=== PATIENT | male | born 1995 | race African-American/Black ===

== ENCOUNTER 2017-04-16 09:55 | Emergency (ER) | payer SELFPAY ==
--- NOTE | 2017-04-16 10:24 | ED.ADGEN ---
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 Denies history of prior abscesses or hemorrhoids. Does complain of pain it's worse with sitting. Review of Systems Review of Systems Constitutional: Denies fever or chills [] Eyes: Denies change in visual acuity, redness, or eye pain [] HENT: Denies nasal congestion or sore throat [] Respiratory: Denies cough or shortness of breath [] Cardiovascular: No additional information not addressed in HPI [] GI: Denies abdominal pain, nausea, vomiting, bloody stools or diarrhea [] : Denies dysuria or hematuria [] Musculoskeletal: Denies back pain or joint pain [] Integument: Denies rash or skin lesions [] Neurologic: Denies headache, focal weakness or sensory changes [] Endocrine: Denies polyuria or polydipsia [] Physical Exam Physical Exam Constitutional: Well developed, well nourished, no acute distress, non-toxic appearance. [] HENT: Normocephalic, atraumatic, bilateral external ears normal, oropharynx moist, no oral exudates, nose normal. [] Eyes: PERRLA, EOMI, conjunctiva normal, no discharge. [] Neck: Normal range of motion, no tenderness, supple, no stridor. [] Cardiovascular:Heart rate regular rhythm, no murmur [] Lungs & Thorax: Bilateral breath sounds clear to auscultation [] Abdomen: Bowel sounds normal, soft, no tenderness, no masses, no pulsatile masses. [] Skin: Warm, dry, no erythema, no rash. Examination of the left buttocks mild tenderness questionable area of induration but steepened maybe 1-2 cm but not anything near the surface of the skin; perirectal exam no hemorrhoids no fissures nontender around the anus. [] Back: No tenderness, no CVA tenderness. [] Extremities: No tenderness, no cyanosis, no clubbing, ROM intact, no edema. [] Neurologic: Alert and oriented X 3, normal motor function, normal sensory function, no focal deficits noted. [] Psychologic: Affect normal, judgement normal, mood normal. [] Current Patient Data Vital Signs Afebrile not tachycardic EKG EKG [] Radiology/Procedures Radiology/Procedures [] Course & Med Decision Making Course & Med Decision Making Pertinent Labs and Imaging studies reviewed. (See chart for details) Based on physical exam there is nothing to incise and drain at this moment in time this may represent an early perirectal abscess.. Patient is declining CAT scan for further clarification as to size location in exact problem. Recommend pain meds, sits baths, and we will try antibiotics. I've explained to the patient and that this may get worse and faster in which case he would need to return and at that time we can do an incision and drainage but is not ready yet. [] Final Impression Final Impression Left Buttocks pain [] Problems: Dragon Disclaimer Dragon Disclaimer This electronic medical record was generated, in whole or in part, using a voice recognition dictation system. CLARK PALMER MD Apr 16, 2017 10:24
[2017-04-16] MEDS ORDERED: NAPR375T3 PO (10:33)
[2017-04-16] MEDS ORDERED: AMOX1TAB61 PO (10:33)
[2017-04-16 10:50] VITALS: BP 110/64
== END 2017-04-16 10:50 | disposition home or self-care (01) ==
LOC: ER 09:55
DX: M54.5 Low back pain (principal)
CPT/HCPCS: 99283

== ENCOUNTER 2017-04-18 01:22 | Emergency (ER) | payer SELFPAY ==
[2017-04-18 01:22] VITALS: BP 132/67
[~2017-04-18 01:22] MED LIST: AMOX1TAB61 PO; NAPR375T3 PO
--- NOTE | 2017-04-18 01:26 | ED.ADGEN ---
Past History Past Medical History: No Pertinent History Additional Past Medical Histor: denies diabetes Past Surgical History: No Surgical History Smoking: Non-smoker Alcohol Use: None Drug Use: None Adult General Chief Complaint Chief Complaint Abscess HPI HPI Patient is a 22 year old [place] male who presents with of systems left buttocks. According to patient he was seen here approximately week ago for a small area of soreness it was almost but he was given amoxicillin and discharged home. He was instructed that the pain gets worse increasing swelling return back to ER. He states that today he was having increasing pain but denies any pain with bowel movement but it does hurt when he tried to sit because of the abscess. He denies any fevers chills nausea or vomiting. He states he's had one before being never had have a drain. He is unsure when his last tetanus shot was. Review of Systems Review of Systems Constitutional: Denies fever or chills [] Eyes: Denies change in visual acuity, redness, or eye pain [] HENT: Denies nasal congestion or sore throat [] Respiratory: Denies cough or shortness of breath [] Cardiovascular: No additional information not addressed in HPI [] GI: Denies abdominal pain, nausea, vomiting, bloody stools or diarrhea [] : Denies dysuria or hematuria [] Musculoskeletal: Denies back pain or joint pain [] Integument: Denies rash, positive for skin lesion on left buttocks. Neurologic: Denies headache, focal weakness or sensory changes [] Endocrine: Denies polyuria or polydipsia [] Current Medications Current Medications Current Medications Medications (Trade) Dose Ordered Sig/Cherry Start Time Stop Time Status Last Admin Dose Admin Acetaminophen/ Hydrocodone Bitart (Lortab 5/325) 2 tab 1X ONCE 04/18/17 02:30 04/18/17 02:31 UNV 04/18/17 02:26 2 TAB Clindamycin HCl (Cleocin) 300 mg 1X ONCE 04/18/17 02:30 04/18/17 02:31 UNV 04/18/17 02:26 300 MG Diphtheria/ Tetanus/Acell Pertussis (Boostrix) 0.5 ml STK-MED ONCE 04/18/17 01:41 04/18/17 01:42 DC Lidocaine HCl 20 ml STK-MED ONCE 04/18/17 01:41 04/18/17 01:42 DC Lidocaine/Sodium Bicarbonate (Buffered Lidocaine 1%) 3 ml 1X ONCE 04/18/17 01:45 04/18/17 01:46 DC 04/18/17 01:45 3 ML Allergies Allergies Allergies Coded Allergies Type Severity Reaction Last Updated Verified No Known Drug Allergies 04/16/17 No Physical Exam Physical Exam Constitutional: Well developed, well nourished, no acute distress, non-toxic appearance. [] HENT: Normocephalic, atraumatic, bilateral external ears normal, oropharynx moist, no oral exudates, nose normal. [] Eyes: PERRLA, EOMI, conjunctiva normal, no discharge. [] Neck: Normal range of motion, no tenderness, supple, no stridor. [] Cardiovascular:Heart rate regular rhythm, no murmur [] Lungs & Thorax: Bilateral breath sounds clear to auscultation [] Abdomen: Bowel sounds normal, soft, no tenderness, no masses, no pulsatile masses. [] Skin: Warm, dry, no erythema, no rash. 1 x 2 cm fluctuant mass on the left buttocks approximately 2 cm inferior and lateral from the anus Back: No tenderness, no CVA tenderness. [] Extremities: No tenderness, no cyanosis, no clubbing, ROM intact, no edema. [] Neurologic: Alert and oriented X 3, normal motor function, normal sensory function, no focal deficits noted. [] Psychologic: Affect normal, judgement normal, mood normal. [] Current Patient Data Vital Signs Vital Signs Date Time Temp Pulse Resp B/P (MAP) Pulse Ox O2 Delivery O2 Flow Rate FiO2 04/18/17 02:26 20 99 Room Air 04/18/17 01:22 98.7 70 EKG EKG [] Radiology/Procedures Radiology/Procedures [] Course & Med Decision Making Course & Med Decision Making Pertinent Labs and Imaging studies reviewed. (See chart for details) His abscess was opened and packed with iodoform gauze. Refused a rectal exam. Hard to tell how far the abscess goes. I've offered him admission at [place] however he states he rather go home and follow up with surgery as an outpatient. I stressed to him and his that the abscess goes into the sphincter muscle that he'll have incontinence of stool and this is why I wanted him to go to [facility] to be admitted and evaluated by surgery. He states he he will follow-up as an outpatient I stressed again that this is not something to take slightly that he needs to see him tomorrow. I've given him Dr. Mena's information and told him within the next 1-2 days he needs a follow -up with him. Return precautions given for uncontrolled pain, fevers, pain with bowel movements or other concerns to return back to ER. He is agreeable Plan B discharged with 3 mg clindamycin 3 times daily and [place]. His tetanus was updated. Final Impression Final Impression Gluteal abscess Problems: Dragon Disclaimer Dragon Disclaimer This electronic medical record was generated, in whole or in part, using a voice recognition dictation system. Incision and Drainage Indication: Gluteal abscess Procedure: The patient was positioned appropriately and the skin over the incision site was chlorhexidine. Local anesthesia was 5 mL of 1% lidocaine. An incision was then made over the left inferior buttocks and opiates purulent material was expressed. Loculations were broken up. The drainage cavity was then packed with quarter-inch iodoform gauze. The patients tetanus status updated. The patient tolerated the procedure well. Complications: No complications noted NURIA REID MD Apr 18, 2017 01:26
[2017-04-18] MEDS ORDERED: DIPHTH,PERTUSS(ACELL),TET TOX 0.5 ML DISP.SYRIN. VAX IM ONE ×2 (01:41→01:45)
[2017-04-18] MEDS ORDERED: LIDOCAINE 1% Multi-Dose 20 ML VIAL. ONE (01:41)
[2017-04-18] MEDS ORDERED: HYDR-971 PO (01:44)
[2017-04-18] MEDS ORDERED: CLIN300C8 PO (01:44)
[2017-04-18] MEDS ORDERED: LIDOCAINE WITH 8.4% SOD BICARB 3 ML DISP.SYRIN. IJ ONE (01:45)
[2017-04-18] MEDS ORDERED: HYDROcodone/APAP 5/325MG 1 TAB TABLET ONE (02:23)
[2017-04-18] MEDS ORDERED: CLINDAMYCIN HCL 150 MG CAPSULE ONE (02:23)
[2017-04-18] MEDS ORDERED: HYDROcodone/APAP 5/325MG 1 TAB TABLET PO ONE (02:30)
[2017-04-18] MEDS ORDERED: CLINDAMYCIN HCL 150 MG CAPSULE PO ONE (02:30)
== END 2017-04-18 02:35 | disposition home or self-care (01) ==
LOC: ER 01:22
DX: L02.31 Cutaneous abscess of buttock (principal)
CPT/HCPCS: 87070; 90471; 90715; 99284-25; 99285-25

== ENCOUNTER 2017-07-31 08:28 | Emergency (ER) | payer BC ==
[~2017-07-31] VITALS: Ht 182.9 cm; Wt 86.2 kg
[~2017-07-31 08:28] MED LIST changes: +CLIN300C8 PO; +HYDR-971 PO; +NAPR-695 PO; -NAPR375T3 PO
[2017-07-31] MEDS ORDERED: IV NORMAL SALINE 1,000ML 1,000 ML IV ONE (08:45)
[2017-07-31] MEDS ORDERED: ONDANSETRON PF 4 MG/2 ML VIAL. IV ONE (09:00)
[2017-07-31] MEDS ORDERED: DEXAMETHASONE SOD PHOS 10 MG/ML VIAL IV ONE (09:00)
[2017-07-31] MEDS ORDERED: ACETAMINOPHEN 325 MG TABLET PO ONE (09:00)
[2017-07-31] MEDS ORDERED: diphenhydrAMINE 50 MG/ML VIAL IVP ONE (09:00)
--- NOTE | 2017-07-31 09:05 | PHYS DOC ---
Past History Past Medical History: No Pertinent History Additional Past Medical Histor: denies diabetes Past Surgical History: No Surgical History Smoking: Non-smoker Alcohol Use: None Drug Use: None Adult General Chief Complaint Chief Complaint: HEADACHE HPI HPI Patient is a pleasant otherwise healthy 22-year-old male with no major medical problems presents with nausea and vomiting that began yesterday and now a slight frontal headache that began this morning. The headache is not worse of life and sudden onset is described as throbbing and is worse with range of motion and bending forward. Patient denies any specific weakness, numbness or tingling, change in vision, or neck stiffness. He does have a slight low-grade fever reported at home but nothing measured. Patient denies any sick contacts, travel outside the country, he denies any antibiotic use, or rash. Patient has had nonbilious nonbloody vomiting 1 day with no abdominal pain he also complains of slight loose stool. He has taken no medications [id number] or otherwise. Review of Systems Review of Systems Constitutional: Subjective fevers and chills at home Eyes: Denies change in visual acuity, redness, or eye pain [] HENT: Denies nasal congestion or sore throat [] Respiratory: Denies cough or shortness of breath [] Cardiovascular: No additional information not addressed in HPI [] GI: Denies abdominal pain but has nausea with nonbilious nonbloody vomiting loose stool without blood or mucus. : Denies dysuria or hematuria [] Musculoskeletal: Denies back pain or joint pain [] Integument: Denies rash or skin lesions [] Neurologic: He describes a headache that is frontal in nature not worst of life and sudden onset with no neck stiffness without paresthesias, changes in vision , changes in speech, or weakness. Endocrine: Denies polyuria or polydipsia [] Current Medications Current Medications Current Medications Medications (Trade) Dose Ordered Sig/Cherry Start Time Stop Time Status Last Admin Dose Admin Acetaminophen (Tylenol) 650 mg 1X ONCE 07/31/17 09:00 07/31/17 09:01 DC Dexamethasone Sodium Phosphate (Decadron) 10 mg 1X ONCE 07/31/17 09:00 07/31/17 09:01 DC Diphenhydramine HCl (Benadryl) 50 mg 1X ONCE 07/31/17 09:00 07/31/17 09:01 DC Ondansetron HCl (Zofran) 4 mg 1X ONCE 07/31/17 09:00 07/31/17 09:01 DC Sodium Chloride 1,000 ml @ 1,000 mls/hr 1X ONCE 07/31/17 08:45 07/31/17 09:44 07/31/17 08:45 1,000 MLS/HR Allergies Allergies Allergies Coded Allergies Type Severity Reaction Last Updated Verified No Known Drug Allergies 07/31/17 No Physical Exam Physical Exam Vital signs recorded on the chart patient noted to be hypertensive and febrile to 100.7. Constitutional: Well developed, well nourished, no acute distress, non-toxic appearance. [] HENT: Normocephalic, atraumatic, bilateral external ears normal, dry tacky mucous membranes no oral exudates, nose normal. [] Eyes: PERRLA, EOMI, conjunctiva normal, no discharge. [] Neck: Normal range of motion, no tenderness, supple, no stridor. Patient has no specific Brudzinski's or Kernig's sign[] Cardiovascular:Heart rate regular rhythm, no murmur [] Lungs & Thorax: Bilateral breath sounds clear to auscultation [] Abdomen: Bowel sounds noted to be hyperactive, abdomen is otherwise soft no tenderness no masses no pulsatile masses no guarding rebound or organomegaly. Skin: Warm, dry, no erythema, no rash. [] Back: No tenderness, no CVA tenderness. [] Extremities: No tenderness, no cyanosis, no clubbing, ROM intact, no edema. [] Neurologic: Alert and oriented X 3, normal motor function, normal sensory function, no focal deficits noted. [] Current Patient Data Vital Signs Vital Signs Date Time Temp Pulse Resp B/P (MAP) Pulse Ox O2 Delivery O2 Flow Rate FiO2 07/31/17 08:38 100.7 70 17 98 Room Air EKG EKG [] Radiology/Procedures Radiology/Procedures [] Course & Med Decision Making Course & Med Decision Making Pertinent Labs and Imaging studies reviewed. (See chart for details) ration initially presents with nausea vomiting and a low-grade fever. He is feeling dehydrated and looks so on physical exam. He has a low-grade fever to 100.7 with no obvious signs of meningitis, we will provide him analgesics, fever reducers, fluids antiemetics and repeat evaluations. Patient tells me that their symptoms given during CC are improved. Labs are noted at this time patient is felt markedly improved with this headache is also improving and his temples. Fever is coming down. Time is now 9:45 AM[] Time is now 10:35 PM patient feels markedly better his fever is now below 99.7 he has full range of motion. Neck with no evidence of meningitis no rash no petechial findings in the lower legs or his arms Dragon Disclaimer Dragon Disclaimer This chart was dictated in whole or in part using Voice Recognition software in a busy, high-work load, and often noisy Emergency Department environment. It may contain unintended and wholly unrecognized errors or omissions. Departure Departure: Impression: Primary Impression: Viral syndrome Additional Impressions: Fever Headache Disposition: HOME, SELF-CARE Referrals: PCPVANNESA (PCP) Patient Instructions: Fever, Nausea and Vomiting, Tension Headache Additional Instructions: My discharge plan Follow up: In addition patient is asked to followup with their primary doctor, within a week for followup examination and to address patient's ongoing medical conditions. Because patient does not have a regular medical doctor, a local physician Resource Sheet will be provided to establish care primary care. Patient is advised that in the Emergency Department primary complaints are addressed and only in light of known signs and symptoms. Patient should return immediately to the emergency department if new signs and symptoms develop or patient's condition worsens in any way. At time of discharge patient was in stable condition and had verbalized understanding of the discharge instructions. Scripts Ondansetron (ZOFRAN ODT) 8 Mg Tab.rapdis 4 MG PO TID for 5 Days Prov: LIO MUIR MD 07/31/17 Naproxen (NAPROSYN) 500 Mg Tablet 1 TAB PO BID, #20 TAB 1 Refill Prov: LIO MUIR MD 07/31/17 Problem Qualifiers LIO MUIR MD Jul 31, 2017 09:05
[2017-07-31 10:36] VITALS: BP 142/59
[2017-07-31] MEDS ORDERED: NAPR500T PO (10:37)
[2017-07-31] MEDS ORDERED: ONDA8TAB12 PO (10:37)
== END 2017-07-31 10:42 | disposition home or self-care (01) ==
LOC: ER 08:28
DX: B34.9 Viral infection, unspecified (principal); R50.9 Fever, unspecified; R51 Headache
CPT/HCPCS: 96361; 96374; 96375; 99284; J1100; J1200; J2405; J7030

== ENCOUNTER 2018-08-31 08:37 | Emergency (ER) | payer BC ==
[~2018-08-31] VITALS: Ht 182.9 cm; Wt 95.3 kg
[~2018-08-31 08:37] MED LIST changes: +NAPR-683 PO; +ONDA8TAB12 PO
[2018-08-31 08:55] VITALS: BP 129/83
[2018-08-31] MEDS ORDERED: IBUP600T16 PO (08:55)
--- NOTE | 2018-08-31 08:59 | RAD ---
Examination: SHOULDER 2+V RIGHT History: Trauma 08/30/2018, boxing injury to right shoulder, pain Comparison/Correlation: None Findings: Total of 3 images of the right shoulder were obtained. Joint spaces are normal. No acute fracture or bone destruction. Soft tissues are normal. Right upper lung field is unremarkable. Impression: Normal right shoulder x-ray exam. Electronically signed by: Valerio Lane MD (08/31/2018 8:56 AM) [facility]
[2018-08-31] MEDS ORDERED: IBUPROFEN 600 MG TABLET. PO ONE (09:00)
--- NOTE | 2018-08-31 10:34 | PHYS DOC ---
Past History Past Medical History: No Pertinent History Additional Past Medical Histor: denies diabetes Past Surgical History: No Surgical History Smoking: Non-smoker Alcohol Use: None Drug Use: None Adult General Chief Complaint Chief Complaint: SHOULDER INJURY HPI HPI Patient is a 23-year-old male presenting with shoulder pain. He was sparring as a box yesterday and he moved his arm the wrong way he has had sharp anterior right shoulder pain nonradiating worse with movement tried Tylenol with minimal relief symptoms are getting worse with time Current Medications Current Medications Current Medications Medications (Trade) Dose Ordered Sig/Cherry Start Time Stop Time Status Last Admin Dose Admin Ibuprofen (Motrin) 600 mg 1X ONCE 08/31/18 09:00 08/31/18 09:01 DC 08/31/18 08:52 600 MG Allergies Allergies Allergies Coded Allergies Type Severity Reaction Last Updated Verified No Known Drug Allergies 07/31/17 No Physical Exam Physical Exam Constitutional: Well developed, well nourished, no acute distress, non-toxic appearance. [] HENT: Normocephalic, atraumatic, bilateral external ears normal, oropharynx moist, no oral exudates, nose normal. [] Eyes: PERRLA, EOMI, conjunctiva normal, no discharge. [] Pulmonary: Normal respiratory effort no increased work of breathing no obvious chest wall trauma A Extremities: Mild tenderness noted to the anterior right shoulder no swelling no erythema no deformity distal function is intact[] Neurologic: Alert and oriented X 3, normal motor function, normal sensory function, no focal deficits noted. [] Psychologic: Affect normal, judgement normal, mood normal. [] Current Patient Data Vital Signs Vital Signs Date Time Temp Pulse Resp B/P (MAP) Pulse Ox O2 Delivery O2 Flow Rate FiO2 08/31/18 08:55 97.6 89 20 100 Room Air EKG EKG [] Radiology/Procedures Radiology/Procedures [] Impressions: Shoulder x-ray negative Course & Med Decision Making Course & Med Decision Making Pertinent Labs and Imaging studies reviewed. (See chart for details) []Sling applied ice and rest therapy recommended return precautions advised as needed for follow-up Dragon Disclaimer [place] Disclaimer This electronic medical record was generated, in whole or in part, using a voice recognition dictation system. Departure Departure: Impression: Primary Impression: Shoulder sprain Disposition: HOME, SELF-CARE Condition: STABLE Patient Instructions: Shoulder Exercises, Generic, SportsMed Scripts Ibuprofen (IBUPROFEN) 600 Mg Tablet 600 MG PO TID PRN for PAIN, #30 TAB Prov: PK JENKINS MD 08/31/18 PK JENKINS MD Aug 31, 2018 10:34
== END 2018-08-31 09:07 | disposition home or self-care (01) ==
LOC: ER 08:37
DX: S43.491A Other sprain of right shoulder joint, initial encounter (principal); X50.9XXA Other and unspecified overexertion or strenuous movements or postures, initial encounter; Y93.89 Activity, other specified; Y92.89 Other specified places as the place of occurrence of the external cause; Y99.8 Other external cause status
CPT/HCPCS: 73030; 99284

== ENCOUNTER 2018-10-13 08:17 | Emergency (ER) | payer BC ==
[~2018-10-13] VITALS: Ht 180.3 cm; Wt 98.9 kg
[~2018-10-13 08:17] MED LIST changes: +HYDR-3165 PO; -HYDR-971 PO; +IBUP600T16 PO
[2018-10-13 09:13] VITALS: BP 157/99
[2018-10-13] MEDS ORDERED: SULF1TAB24 PO (09:17)
[2018-10-13] MEDS ORDERED: HYDR-3136 PO (09:17)
--- NOTE | 2018-10-13 13:01 | ED.ADGEN ---
Past History Past Medical History: No Pertinent History Additional Past Medical Histor: denies diabetes Past Surgical History: No Surgical History Smoking: Non-smoker Alcohol Use: None Drug Use: None Adult General Chief Complaint Chief Complaint Akosua-rectal abscesss HPI HPI Patient is an 23 YO AA male with history of chronic perirectal abscess with fistula tract presents with increased perirectal, right buttock pain. Patient states symptoms have occurred over the past several days. He reports fluctuance and tenderness to his left lower buttock chin. No fever chills, nausea vomiting or sweats. Denies drainage, diarrhea or mucousy stools. He was seen in the emergency department approximately one year ago for the same was instructed to follow-up with general surgeon. Patient did not see anyone in follow-up. No other acute symptoms or complaints.[] Review of Systems Review of Systems ROS as per HPI All other systems were reviewed and found to be within normal limits, except as documented in this note. Allergies Allergies Allergies Coded Allergies Type Severity Reaction Last Updated Verified No Known Drug Allergies 07/31/17 No Physical Exam Physical Exam Constitutional: Well developed, well nourished, no acute distress, non-toxic appearance. [] HENT: Normocephalic, atraumatic, bilateral external ears normal, oropharynx moist,nose normal. [] Eyes: PERRLA, EOMI, conjunctiva normal. [] Lungs & Thorax: Bilateral breath sounds clear to auscultation [] Abdomen: Bowel sounds normal, soft, no tenderness, no masses, no pulsatile masses. [] Buttocks:Left lower medial buttock/akosua-rectal abscess. He erythema or drainage. Abscess is fluctuant with scar from previous incisions/drainage site. Unable to determine depth on cursory exam. Neurologic: Alert and oriented X 3, normal motor function, normal sensory function, no focal deficits noted. [] Psychologic: Affect normal, judgement normal, mood normal. [] Current Patient Data Vital Signs Vital Signs Date Time Temp Pulse Resp B/P (MAP) Pulse Ox O2 Delivery O2 Flow Rate FiO2 10/13/18 09:13 98.1 94 100 10/13/18 08:29 18 157/99 (118) Room Air EKG EKG [] Radiology/Procedures Radiology/Procedures [Superficial I&D of perirectal abscess Or buttocks prepped with Betadine, 2 mL 1% Xylocaine without epinephrine injected over the area of maximal fluctuance. On which a stab incision was made with a #11 blade. A small amount foul-smelling purulent drainage was evacuated, Abscess was irrigated as well as irrigated after superficially explored for loculations. On deeper abscess was felt to No other pockets were noted. Patient placed on dry bandage. Course & Med Decision Making Course & Med Decision Making Pertinent Labs and Imaging studies reviewed. (See chart for details) [Perirectal abscess. No abdominal pain, systemic symptoms. Patient's reason for presentation to the ED is primarily pain related. Superficial I&D of incision of perirectal abscess was performed primarily for pain relief. I explained to the patient this was not a definitive procedure and that this would require general surgical follow-up with exploration excision of abscess and fistula tract. Give the lack of acute complications ant that this is a chronic process that has recurred or went of for weeks to months, I will referred the patient to general surgeon. Patient verbalizes understanding agreement discharge instructions prior to departure.] Final Impression Final Impression [1. Akosua-rectal abscess] Elenita Disclaimer Draglola Disclaimer This electronic medical record was generated, in whole or in part, using a voice recognition dictation system. CLAYTON MCNEIL DO Oct 13, 2018 13:01
== END 2018-10-13 09:25 | disposition home or self-care (01) ==
LOC: ER 08:17
DX: K61.1 Rectal abscess (principal)
CPT/HCPCS: 46040; 99284

== ENCOUNTER 2018-12-26 04:14 | Emergency (ER) | payer OTHER ==
[~2018-12-26] VITALS: Ht 180.3 cm; Wt 95.3 kg
[~2018-12-26 04:14] MED LIST changes: +HYDR-3136 PO; +SULF1TAB24 PO
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
[2018-12-26 04:20] VITALS: BP 165/69
[2018-12-26] MEDS ORDERED: IBUPROFEN 600 MG TABLET. PO ONE (04:45)
[2018-12-26] MEDS ORDERED: HYDR-1179 PO ×2 (05:01→05:37)
--- NOTE | 2018-12-26 07:41 | RAD ---
Left knee, 4 views, 12/26/2018: HISTORY: Pain, knee injury No fracture or dislocation is identified. No signal joint effusion is evident. IMPRESSION: No acute left knee abnormality is detected. Electronically signed by: Rey Waller MD (12/26/2018 7:38 AM) [facility]
== END 2018-12-26 05:45 | disposition home or self-care (01) ==
LOC: ER 04:14
DX: S83.422A Sprain of lateral collateral ligament of left knee, initial encounter (principal); X50.9XXA Other and unspecified overexertion or strenuous movements or postures, initial encounter; Y93.89 Activity, other specified; Y92.89 Other specified places as the place of occurrence of the external cause; Y99.0 Civilian activity done for income or pay
CPT/HCPCS: 73564; 99283

== ENCOUNTER 2020-03-14 07:58 | Emergency (ER) | payer BC, OTHER ==
[~2020-03-14] VITALS: Ht 182.9 cm; Wt 100.0 kg
[~2020-03-14 07:58] MED LIST changes: +HYDR-1179 PO
[2020-03-14 08:03] VITALS: BP 158/86
--- NOTE | 2020-03-14 08:24 | PHYS DOC ---
Past History Past Medical History: No Pertinent History Additional Past Medical Histor: denies diabetes Past Surgical History: No Surgical History Smoking: Non-smoker Alcohol Use: None Drug Use: None General Adult EDM: Chief Complaint: ABSCESS HPI: HPI: Patient is a 24-year-old male who presents to the emergency department for evaluation. He states over the past 4 to 5 days, he developed a leftGluteal abscess, which has become increasingly painful. He denies any fevers, chills, or drainage. He states he has had abscesses in the past in this general area. He denies any definite injury at this time. He has no history of diabetes, denies polyuria or polydipsia. Palpation of the affected area worsens his pain. There are no alleviating factors to his symptoms. Review of Systems: Review of Systems: Constitutional: Denies fever or chills GI: Denies abdominal pain, nausea, vomiting, bloody stools or diarrhea : Denies dysuria Musculoskeletal: Denies back pain or joint pain Integument: Denies rash Endocrine: Denies polyuria or polydipsia Lymphatic: Denies swollen glands Heart Score: Risk Factors: Risk Factors: DM, Current or recent (<one month) smoker, HTN, HLP, family history of CAD, obesity. Risk Scores: Score 0 - 3: 2.5% MACE over next 6 weeks - Discharge Home Score 4 - 6: 20.3% MACE over next 6 weeks - Admit for Clinical Observation Score 7 - 10: 72.7% MACE over next 6 weeks - Early Invasive Strategies Allergies: Allergies: Allergies Coded Allergies Type Severity Reaction Last Updated Verified No Known Drug Allergies 07/31/17 No Physical Exam: PE: PHYSICAL EXAM: CONSTITUTIONAL: Well developed, well nourished HEAD: normocephalic, atraumatic EENT: PERRL, EOMI. Conjunctivae normal color, sclerae non-icteric; moist mucous membranes. NECK: Supple, non-tender; no meningismus. LUNGS: Lungs CTA, breathing even and unlabored. Normal air movement. HEART: Regular rate and rhythm, no murmur CHEST: No deformity; non-tender ABDOMEN: The abdomen is soft, and non-tender, no masses or bruits. EXTREM: Normal ROM; no deformity, no calf tenderness. Normal pulses palpable in all extremities. There is no pedal edema. SKIN: No rash; no diaphoresis. On the inferior aspect of the left gluteal region, there is an approximately 3 x 3 cm abscess, some fluctuance, and a small blister in the center. The area is tender to palpation. There is no signifi cant surrounding erythema. The area is remote from the anal verge, there is no perianal tenderness to palpation. NEURO: Alert; normal speech and cognition; CN's grossly intact; strength grossly intact without focal deficit. BACK: No CVA TTP. EKG: EKG: [] Radiology/Procedures: Radiology/Procedures: [] Impressions: INCISION AND DRAINAGE PROCEDURE NOTE: The abscess located on the left gluteal region was prepped with Betadine, anesthetized with 1% lidocaine with epinephrine, and 0.5% Marcaine and incised with #11 blade. A large amount amount of pus was obtained from the wound, the wound was probed with a blunt forceps and packed with gauze packing. The patient tolerated procedure well. Wound care instructions were discussed with the patient. Course & Med Decision Making: Course & Med Decision Making Pertinent Labs and Imaging studies reviewed. (See chart for details) [] Dragon Disclaimer: Dragon Disclaimer: This electronic medical record was generated, in whole or in part, using a voice recognition dictation system. Departure Departure: Impression: Primary Impression: Gluteal abscess Disposition: 01 HOME, SELF-CARE Condition: STABLE Referrals: NORMA WYATT MD Patient Instructions: Abscess Scripts Hydrocodone Bit/Acetaminophen (NORCO 5-325 TABLET) 1 Each Tablet 1 TAB PO Q6HRS for Pain, #15 TAB Prov: SNEHAL MARTIN MD 03/14/20 Sulfamethoxazole/Trimethoprim (BACTRIM 400-80 MG TABLET) 1 Each Tablet 1 TAB PO BID for - for 7 Days, #14 TAB 0 Refills Prov: SNEHAL MARTIN MD 03/14/20 SNEHAL MARTIN MD March 14, 2020 08:24
[2020-03-14] MEDS ORDERED: LIDOCAINE 1%/EPI 1:100,000 20 ML VIAL. IJ ONE (08:30)
[2020-03-14] MEDS ORDERED: BUPIVACAINE MPF 0.5% 30 ML VIAL. SQ ONE (08:30)
[2020-03-14] MEDS ORDERED: HYDR-3165 PO (08:39)
[2020-03-14] MEDS ORDERED: SULF1TAB23 PO (08:39)
== END 2020-03-14 09:12 | disposition home or self-care (01) ==
LOC: ER 07:58
DX: L02.31 Cutaneous abscess of buttock (principal)
CPT/HCPCS: 10060; 99283; J3490

== ENCOUNTER → 2020-07-20 | Emergency (ER) | payer BC ==
[~2020-07-20] VITALS: Ht 180.3 cm; Wt 103.0 kg
[~2020-07-20] MED LIST changes: +SULF1TAB23 PO
[2020-07-20 19:28] VITALS: BP 144/89
--- NOTE | 2020-07-20 19:44 | PHYS DOC ---
Past History Past Medical History: No Pertinent History Additional Past Medical Histor: denies diabetes Past Surgical History: No Surgical History Smoking: Non-smoker Alcohol Use: Rarely Drug Use: None General Adult EDM: Chief Complaint: FEVER HPI: HPI: Patient is a [age] year old [sex] who presents with [] Review of Systems: Review of Systems: Constitutional: Denies fever or chills Eyes: Denies change in visual acuity HENT: Denies nasal congestion or sore throat Respiratory: Denies cough or shortness of breath Cardiovascular: Denies chest pain or edema GI: Denies abdominal pain, nausea, vomiting, bloody stools or diarrhea : Denies dysuria Musculoskeletal: Denies back pain or joint pain Integument: Denies rash Neurologic: Denies headache, focal weakness or sensory changes Endocrine: Denies polyuria or polydipsia Lymphatic: Denies swollen glands Psychiatric: Denies depression or anxiety Heart Score: Risk Factors: Risk Factors: DM, Current or recent (<one month) smoker, HTN, HLP, family history of CAD, obesity. Risk Scores: Score 0 - 3: 2.5% MACE over next 6 weeks - Discharge Home Score 4 - 6: 20.3% MACE over next 6 weeks - Admit for Clinical Observation Score 7 - 10: 72.7% MACE over next 6 weeks - Early Invasive Strategies Allergies: Allergies: Allergies Coded Allergies Type Severity Reaction Last Updated Verified No Known Drug Allergies 07/31/17 No Physical Exam: PE: Constitutional: Well developed, well nourished, no acute distress, non-toxic appearance. [] HENT: Normocephalic, atraumatic, bilateral external ears normal, oropharynx moist, no oral exudates, nose normal. [] Eyes: PERRLA, EOMI, conjunctiva normal, no discharge. [] Neck: Normal range of motion, no tenderness, supple, no stridor. [] Cardiovascular:Heart rate regular rhythm, no murmur [] Lungs & Thorax: Bilateral breath sounds clear to auscultation [] Abdomen: Bowel sounds normal, soft, no tenderness, no masses, no pulsatile masses. [] Skin: Warm, dry, no erythema, no rash. [] Back: No tenderness, no CVA tenderness. [] Extremities: No tenderness, no cyanosis, no clubbing, ROM intact, no edema. [] Neurologic: Alert and oriented X 3, normal motor function, normal sensory function, no focal deficits noted. [] Psychologic: Affect normal, judgement normal, mood normal. [] EKG: EKG: [] Radiology/Procedures: Radiology/Procedures: [] Course & Med Decision Making: Course & Med Decision Making Pertinent Labs and Imaging studies reviewed. (See chart for details) [] Dragon Disclaimer: Dragon Disclaimer: This electronic medical record was generated, in whole or in part, using a voice recognition dictation system. Departure Departure: Impression: Primary Impression: Upper respiratory infection Qualified Codes: J06.9 - Acute upper respiratory infection, unspecified Additional Impression: Suspected 2019 novel coronavirus infection Disposition: HOME/RESIDENCE PRIOR TO ADM Condition: STABLE Referrals: PCP,NO (PCP) Patient Instructions: Upper Respiratory Infection, Adult, [id number] Additional Instructions: You have been tested for or diagnosed with COVID-19. It is an infection caused by a new type of coronavirus. COVID-19 will cause cold-like or mild flu symptoms in most. It can cause more severe symptoms like problems breathing in some. There is no treatment for COVID-19. The body will clear the infection over time. Self-care will help to ease discomfort. Steps to Take: Self-Care Rest as needed. Healthy habits may help you feel better. Steps include: Choose healthy foods including fruits and vegetables. Drink water throughout the day. Get plenty of sleep each night. If you smoke, try to quit. It may ease breathing. Avoid alcohol. Keep Others Healthy The virus can spread to others. Droplets are released every time you sneeze or cough. The droplets can get into the mouth, nose, or eyes of people near you and lead to infection. To lower the chances of spreading COVID-19 to others: Stay at home until your doctor has said it is safe to leave. If you tested positive this will mean staying isolated until both of the following are true: At least 7 days have passed since the start of illness. You are free of fever for at least 72 hours without the use of medicine. During this time: - Avoid public areas, events, or transportation. Do not return to work or school until your doctor has said it is safe to do so. - Call ahead if you need to go to a medical center. Let them know you may have COVID-19. It will help them guide you where to go. They may also ask you to wear a facemask when you come to the office. - If you call for emergency medical services, let them know you may have COVID- 19. While at home: - Try to avoid close contact with others. Stay about 6 feet away. - If possible, spend most of your time in a separate room from others. - Use a face mask if you will be in close contact with others such as sharing a room or vehicle. - Have someone wipe down common surfaces in the home. Use household fourdrinier wire weaver every day on areas like doorknobs, counters, or sinks. - Cough or sneeze into a tissue. Throw the tissue away right after use. If a tissue is not available, cough or sneeze into your elbow. - Wash your hands often. Wash them after sneezing or coughing. Use soap and water and wash for at least 20 seconds. Alcohol based hand plate cleaner can be used if soap and water is not available. - Do not prepare food for others. Avoid sharing personal items like forks, spoons, or toothbrushes. - Avoid close contact with pets while you are sick. There is no evidence of the virus passing to pets. This is a safety step until more is known about this virus. Isolation can be frustrating. Social interaction can help. Keep in touch with friends and family through phone and tech options. You can still interact with others in your home, just keep a safe distance of about 6 feet. Follow-up: Your doctors office will check in with you to see if there are any changes in your health. You may be asked to keep track of symptoms to share with them. They will also let you know when you are clear to be in public again. Problems to Look Out For: Contact your doctor if your recovery is not going as you expect. Get emergency care if you have problems such as: - Trouble breathing - Nonstop chest pain or pressure - Changes in awareness, confusion, or problems waking - Lips or face have bluish color - Worsening of symptoms If you think you have an emergency, call for emergency medical services right away. As taken from [facility] Justification of Admission: Justification of Admission: Justification of Admission Dx: N/A LIZ ROY DO Jul 20, 2020 19:44
== END | disposition home or self-care (01) ==
LOC: ER 19:28
DX: J06.9 Acute upper respiratory infection, unspecified (principal); Z20.828 Contact with and (suspected) exposure to other viral communicable diseases
CPT/HCPCS: 99283; U0003

== ENCOUNTER 2021-07-19 03:17 | Emergency (ER) | payer BC ==
[~2021-07-19] VITALS: Ht 180.3 cm; Wt 101.4 kg
[~2021-07-19 03:17] MED LIST changes: -CLIN300C8 PO; +CLIN300C9 PO
[2021-07-19 03:25] VITALS: BP 142/103
--- NOTE | 2021-07-19 04:32 | PHYS DOC ---
Past History Past Medical History: No Pertinent History Additional Past Medical Histor: denies diabetes Past Surgical History: No Surgical History Smoking: Non-smoker Alcohol Use: Occasionally Drug Use: None General Adult EDM: Chief Complaint: ABSCESS HPI: HPI: 26-year-old male presents with cyst of the buttocks. Patient has had this for a long time. He had it drained a little over a year ago and did not go to his follow-up appointment to schedule surgical removal. Over the last few days it has refilled and is now painful. He has not had any drainage. He believes it is at the exact same spot as before. He denies fever or chills. He has no other complaints at this time. Review of Systems: Review of Systems: Constitutional: Denies fever or chills Eyes: Denies change in visual acuity HENT: Denies nasal congestion or sore throat Respiratory: Denies cough or shortness of breath Cardiovascular: Denies chest pain or edema GI: Denies abdominal pain, nausea, vomiting, bloody stools or diarrhea : Denies dysuria Musculoskeletal: Denies back pain or joint pain Integument: Buttocks cyst Neurologic: Denies headache, focal weakness or sensory changes Endocrine: Denies polyuria or polydipsia Lymphatic: Denies swollen glands Psychiatric: Denies depression or anxiety Allergies: Allergies: Allergies Coded Allergies Type Severity Reaction Last Updated Verified No Known Drug Allergies 07/19/21 No Physical Exam: PE: Constitutional: Well developed, well nourished, no acute distress, non-toxic appearance. [] HENT: Normocephalic, atraumatic, bilateral external ears normal, oropharynx m oist, no oral exudates, nose normal. [] Eyes: PERRLA, EOMI, conjunctiva normal, no discharge. [] Neck: Normal range of motion, no tenderness, supple, no stridor. [] Cardiovascular:Heart rate regular rhythm, no murmur [] Lungs & Thorax: Bilateral breath sounds clear to auscultation [] Abdomen: Bowel sounds normal, soft, no tenderness, no masses, no pulsatile masses. [] Skin: No erythema or warmth, small keloid from previous incision of the left buttocks. Palpable subcutaneous mass consistent with cyst left buttocks 3 cm lateral to the rectum. [] Back: No tenderness, no CVA tenderness. [] Extremities: No tenderness, no cyanosis, no clubbing, ROM intact, no edema. [] Neurologic: Alert and oriented X 3, normal motor function, normal sensory function, no focal deficits noted. [] Psychologic: Affect normal, judgement normal, mood normal. [] Current Patient Data: Vital Signs: Vital Signs Date Time Temp Pulse Resp B/P (MAP) Pulse Ox O2 Delivery O2 Flow Rate FiO2 07/19/21 03:25 98.6 98 18 142/103 (116) 98 Room Air EKG: EKG: [] Radiology/Procedures: Radiology/Procedures: [] Heart Score: C/O Chest Pain: N/A Risk Factors: Risk Factors: DM, Current or recent (<one month) smoker, HTN, HLP, family history of CAD, obesity. Risk Scores: Score 0 - 3: 2.5% MACE over next 6 weeks - Discharge Home Score 4 - 6: 20.3% MACE over next 6 weeks - Admit for Clinical Observation Score 7 - 10: 72.7% MACE over next 6 weeks - Early Invasive Strategies Course & Med Decision Making: Course & Med Decision Making Pertinent Labs and Imaging studies reviewed. (See chart for details) The patient and I discussed draining his cyst in the emergency room versus scheduling surgical removal. It does not appear to be infected and I do not think it has to be drained. The patient would prefer to have the procedure done once so that would be permanently removed. He will attempt to get in with general surgery or dermatology for excision of his cyst. I believe this is a reasonable plan. He is welcome to return to the emergency room for drainage if he is unable to get this scheduled or the pain becomes too severe. He is stable for discharge at this time. [] Dragon Disclaimer: Draglola Disclaimer: This electronic medical record was generated, in whole or in part, using a voice recognition dictation system. Departure Departure: Impression: Primary Impression: Cyst of buttocks Disposition: HOME / SELF CARE / HOMELESS Condition: STABLE Referrals: PCP,NO (PCP) Patient Instructions: Cyst Removal CLAYTON VERMA DO Jul 19, 2021 04:32
[2021-07-19] MEDS ORDERED: SULF1TAB24 PO (13:07)
== END 2021-07-19 04:36 | disposition home or self-care (01) ==
LOC: ER 03:17
DX: L72.8 Other follicular cysts of the skin and subcutaneous tissue (principal)
CPT/HCPCS: 99281

== ENCOUNTER 2021-07-19 12:06 | Emergency (ER) | payer BC ==
[~2021-07-19] VITALS: Ht 180.3 cm; Wt 102.0 kg
[2021-07-19] MEDS: LIDOCAINE 1% Multi-Dose 20 ML VIAL. IJ ONE (13:06)
[2021-07-19] MEDS ORDERED: SULF1TAB24 PO (13:07)
--- NOTE | 2021-07-19 13:07 | PHYS DOC ---
Past History Past Medical History: No Pertinent History Additional Past Medical Histor: denies diabetes (TALHA IRENE APRN) Past Surgical History: No Surgical History (TALHA IRENE APRN) Smoking: Non-smoker Alcohol Use: Occasionally Drug Use: None (TALHA IRENE APRN) General Adult EDM: Chief Complaint: ABSCESS HPI: HPI: Patient is a 26-year-old male who presents to the ER for an abscess to his left buttock. Patient reports that he has had an abscess drained 1 year ago in this ER. He was seen in the ER yesterday to have the abscess drained but stated that he "punked out" and could not go through with the I&D. Patient denies any fevers. (TALHA IRENE APRN) Review of Systems: Review of Systems: 14 body systems of the review of systems have been reviewed. See HPI for pertinent positive and negative responses, otherwise all other systems are negative, nonpertinent or noncontributory (TALHA IRENE APRN) Current Medications: Current Meds: Current Medications Medications (Trade) Dose Ordered Sig/Cherry Start Time Stop Time Status Last Admin Dose Admin Lidocaine HCl 20 ml 1X ONCE 07/19/21 13:00 07/19/21 13:01 DC (TALHA IRENE APRN) Allergies: Allergies: Allergies Coded Allergies Type Severity Reaction Last Updated Verified No Known Drug Allergies 07/19/21 No (TALHA IRENE APRN) Physical Exam: PE: Constitutional: Well developed, well nourished, no acute distress, non-toxic appearance. [] HENT: Normocephalic, atraumatic Eyes: PERRL, EOMI, conjunctiva normal, no discharge. [] Neck: Normal range of motion, no stridor Cardiovascular normal peripheral perfusion Lungs & Thorax: Normal work of breathing, no tachypnea Skin: Warm, dry, no erythema, no rash. 1 cm abscess noted to left buttock that is fluctuant, no surrounding signs of infection [] Back: Normal range of motion Extremities: No tenderness, no cyanosis, no clubbing, ROM intact, no edema. [] Neurologic: Alert and oriented X 3, normal motor function, normal sensory function, no focal deficits noted. [] Psychologic: Affect normal, judgement normal, mood normal. [] (TALHA IRENE APRN) Current Patient Data: Vital Signs: Vital Signs Date Time Temp Pulse Resp B/P (MAP) Pulse Ox O2 Delivery O2 Flow Rate FiO2 07/19/21 12:46 98.7 79 18 145/125 (132) 99 Room Air (TALHA IRENE APRN) EKG: EKG: [] (TALHA IRENE APRN) Radiology/Procedures: Radiology/Procedures: [] (TALHA IRENE APRN) Heart Score: C/O Chest Pain: No Risk Factors: Risk Factors: DM, Current or recent (<one month) smoker, HTN, HLP, family history of CAD, obesity. Risk Scores: Score 0 - 3: 2.5% MACE over next 6 weeks - Discharge Home Score 4 - 6: 20.3% MACE over next 6 weeks - Admit for Clinical Observation Score 7 - 10: 72.7% MACE over next 6 weeks - Early Invasive Strategies (TALHA IRENE APRN) Course & Med Decision Making: Course & Med Decision Making Pertinent Labs and Imaging studies reviewed. (See chart for details) [] Patient is a 26-year-old male being seen in the ER for an abscess. Abscess noted to left buttock. Lidocaine used in the abscess was incised and drained. 1% lidocaine used to numb abscess prior to I&D. Purulent drainage noted. Patient tolerated procedure. Patient treated with antibiotics at home. Patient advised to follow-up with his primary care provider. I discussed with patient all findings and diagnostic testing as well as the need to follow-up with PCP for further evaluation and treatment or return to the ER if any new or worsening symptoms. Strict return precautions were also discussed at length. Patient voiced understanding and agreement with the plan. Patient is hemodynamically stable at the time of disposition. (TALHA IRENE APRN) Course & Med Decision Making I was the Attending physician on the above date of service of this patient. This patient was evaluated, examined, treated, and dispositioned from the emergency department by the mid-level practitioner. Although I was working at the time , no assistance was requested. Electronically signed, Marni Portillo DO (MARNI PORTILLO DO) Elenita Disclaimer: Elenita Disclaimer: This electronic medical record was generated, in whole or in part, using a voice recognition dictation system. (TALHA IRENE APRN) Incision and Drainage Indication: 1 cm abscess of the left buttock that is fluctuant Procedure: The patient was positioned appropriately and the skin over the incision site was cleansed with Betadine, local anesthesia was 1% lidocaine.. An incision was then made over the left buttock abscess and purulent material was expressed. No need to pack abscess. The patients tetanus status up-to-date, received 1 year ago. The patient tolerated the procedure Complications: None (TALHA IRENE APRN) Departure Departure: Impression: Primary Impression: Abscess Disposition: HOME / SELF CARE / HOMELESS Condition: GOOD Referrals: PCP,NO (PCP) Patient Instructions: Abscess, Abscess, Care After Additional Instructions: You were seen in the ER today for an abscess to your buttocks. This was drained in the ER. We will send a culture of the wound out and you will be notified of your results. You will be discharged home with an antibiotic. Please start and finish this completely. You can apply warm compresses to the abscess area. Please follow-up with your primary care provider regarding your ER visit. You can take Tylenol/ibuprofen for pain at home. If you develop high fevers refractory to treatment, intractable nausea or vomiting or worsening of your pain please return to the ER. EMERGENCY DEPARTMENT GENERAL DISCHARGE INSTRUCTIONS Thank you for coming to [facility] (ED) today and trusting us with you care. We trust that you had a positivie experience in our Emergency Department. If you wish to speak to the department management, you may call the director at [phone]. YOUR FOLLOW UP INSTRUCTIONS ARE FOLLOWS: 1. Do you have a private Doctor? If you do not have a private doctor, please ask for a resource list of physicians or clinics that may be able to assist you with follow up care. 2. The Emergency Physician has interpreted your x-rays. The X-Ray specialist will also review them. If there is a change in the findings, you will be notified in 48 hours when at all possible. 3. A lab test or culture has been done, your results will be reviewed and you will be notified if you need a change in treatment. ADDITIONAL INSTRUCTIONS AND INFORMATION: 1. Your care today has been supervised by a physician who is specially trained in emergency care. Many problems require more than one evaluation for a complete diagnosis and treatment. We recommend that you schedule your follow up appointment as recommended to ensure complete treatment of you illness or injury. If you are unable to obtain follow up care and continue to have a problem, or if your condition worsens, we recommend that you return to the ED. 2. We are not able to safely determine your condition over the phone nor are we able to give sound medical advice over the phone. For these safety reasons, if you call for medical advice we will ask you to come to the ED for further evaluation. 3. If you have any questions regarding these discharge instructions please call the ED at [phone]. SAFETY INFORMATION: In the interest of safety, wellness, and injury prevention; we encourage you to wear your sealbelt, if you smoke; quite smoking, and we encourage family to use a protective helmet for bicycling and other sporting events that present an increased risk for head injury. IF YOUR SYMPTOMS WORSEN OR NEW SYMPTOMS DEVELOP, OR YOU HAVE CONCERNS ABOUT YOUR CONDITION; OR IF YOUR CONDITION WORSENS WHILE YOU ARE WAITING FOR YOUR FOLLOW UP APPOINTMENT; EITHER CONTACT YOUR PRIMARY CARE DOCTOR, THE PHYSICIAN WHOSE NAME AND NUMBER YOU WERE GIVEN, OR RETURN TO THE ED IMMEDIATELY. Scripts Sulfamethoxazole/Trimethoprim (BACTRIM DS TABLET) 1 Each Tablet 1 TAB PO BID for abscess for 7 Days, #14 TAB 0 Refills Prov: TALHA IRENE APRN 07/19/21 TALHA IRENE APRN Jul 19, 2021 13:07 MARNI PORTILLO DO Jul 22, 2021 06:30
[2021-07-19 13:45] VITALS: BP 142/98
== END 2021-07-19 14:16 | disposition home or self-care (01) ==
LOC: ER 12:06
DX: L02.31 Cutaneous abscess of buttock (principal)
CPT/HCPCS: 10060; 87070; 99283